=== PATIENT | female | born 1955 | race Caucasian/White ===

== ENCOUNTER 2019-07-24 13:27 | Outpatient (CLI) | payer MEDICARE, MEDICAID, SELFPAY ==
--- NOTE | 2019-07-24 13:35 | MM_ITS ---
WS: [id number] SCREENING DIGITAL MAMMOGRAM WITH CAD HISTORY: SCREENING COMPARISON: None available. Bilateral CC and MLO views submitted. Computer aided detection analyzed. Breast composition: There are scattered areas of fibroglandular density. No suspicious masses, microc alcifications or architectural distortion. Benign calcifications in each breast. No suspicious masses or distortion. MM/[place] [id number] IMPRESSION: BI-RADS: 2-Benign FOLLOW UP: 1 Year Follow-up
== END 2019-07-24 13:28 | disposition home or self-care (01) ==
PROVIDERS: Family Provider Family Medicine; PCP Family Medicine; Visit Provider Family Medicine
DX: Z12.31 Encounter for screening mammogram for malignant neoplasm of breast (principal)
CPT/HCPCS: 77067

== ENCOUNTER 2019-08-20 12:55 | Outpatient (CLI) | payer MEDICARE, MEDICAID, SELFPAY ==
--- NOTE | 2019-08-20 13:11 | XR_ITS ---
WS: [id number] HIP WITH PELVIS RIGHT TECHNIQUE: 3 views of the right hip with pelvis CLINICAL INFORMATION: PRIMARY OSTEOARTHRITIS OF RIGHT HIP COMPARISON: None. FINDINGS: Moderate degenerative arthritis right hip with joint space narrowing. Osteopenia. Surgical clips in t he right pelvis. Normal visualized right pubic rami. XR/XR hip RT 2-3V wo/w pel* [id number] IMPRESSION: Moderate degenerative arthritis right hip with joint space narrowing. No acute fractures.
== END 2019-08-20 12:56 | disposition home or self-care (01) ==
LOC: RADWPI 12:58
PROVIDERS: Family Provider Family Medicine; PCP Family Medicine; Visit Provider Family Medicine
DX: M16.11 Unilateral primary osteoarthritis, right hip (principal)
CPT/HCPCS: 73502

== ENCOUNTER → 2020-04-13 15:04 | Outpatient (BNVA) | payer MEDICARE, MEDICAID, SELFPAY | PROVIDERS: Family Provider Family Medicine; PCP Family Medicine; Visit Provider Family Medicine | DX: E13.9 Other specified diabetes mellitus without complications (principal); I50.9 Heart failure, unspecified; E03.9 Hypothyroidism, unspecified; R06.00 Dyspnea, unspecified | CPT/HCPCS: 71046; 80053; 83036; 83880; 84439; 84443; 85025 ==

== ENCOUNTER → 2020-06-04 12:48 | Outpatient (BNVA) | payer MEDICARE, MEDICAID, SELFPAY | PROVIDERS: PCP Family Medicine; Visit Provider Family Medicine | DX: Z01.812 Encounter for preprocedural laboratory examination (principal); Z20.828 Contact with and (suspected) exposure to other viral communicable diseases | CPT/HCPCS: 87635 ==

== ENCOUNTER 2020-06-09 11:40 | Outpatient (CLI) | payer MEDICARE, MEDICAID, SELFPAY ==
--- NOTE | 2020-06-09 11:50 | USCV_ITS ---
Stress Echo Cha Reynolds Age: 64 Gender: F : 1955 Exam Date: 06/09/2020 12:55 Ordering Phys: Vijay Aviles MD Technologist: Fermin Villarreal Exam Location: [facility] [place] Indication: exertional SOB Rhythm: Sinus Patient History: exertional shortness of breath, diabetic Cardiac Medications: Medications in past 24 hours: Contrast: Stress Results Protocol: Chon Total dose(mL): Exercise Duration (min:sec): 3:00 METS: 5.1 Resting HR: 101 Resting BP: 137 / 75 Peak HR: 151 Peak BP: 165 / 96 Max Predicted HR: 156 97 % Max Predicted HR Target HR: 133 Double Product: [id number] Stress Summary: The patient's target heart rate was achieved The hemodynamic response to exercise was normal Poor exercise tolerance, achieving 5.1 METS and 96.8% of max predicted heart rate. BP Response: Normal Reason for Termination: Test terminated after reaching maximum heart rate Cardiac Symptoms: Short of Breath ECG Analysis Resting ECG: Normal sinus rhythm Stress ECG: Sinus tachycardia, non specific ST-T wave changes Arrhythmia: None MEASUREMENTS (Male/Female) Normal Values FINDINGS LV systolic function is normal at baseline with EF of 55 to 60%. Regional wall motion abnormalities on baseline. Poor exercise tolerance with 5 METS achieving 96% of maximum predicted heart rate. No regional wall motion abnormalities noted at peak stress or in recovery. LV systolic function on stress is more than 70%. CONCLUSIONS 1. Poor exercise tolerance. 5.1 METS acheived. Target heart rate was achieved 2. Normal baseline LV systolic function. LV EF is 55-60% 3. Hyperdynamic LV on stress, no regional wall motion abnormalities on stress 4. Stress test negative for ischemia Sean Joseph MD (Electronically Signed) Final Date: 11 June 2020 18:01 S
[2020-06-09 11:59] VITALS: BMI 42.7
--- NOTE | 2020-06-09 12:01 | ECG_ITS ---
[facility] Test Date: 2020-06-09 Pat Name: Cha Reynolds Department: Room: Gender: Female Care Giver: : 1955 Requested By: Vijay Romeror Nader Order Number: [id number] Fran MD: Sean Joseph M.D. Interpretive Statements NAME OF STUDY: TREADMILL STRESS ECHOCARDIOGRAM INDICATION: [Shortness of Breath, ] EXERCISE DATA: The patient was exercised by Chon protocol. Baseline heart rate was 101 beats per minute. Baseline blood pressure was 137/75 millimeters of mercury. Target heart rate was 132 beats per minute. Maximum heart rate achieved was 151 bmp, which was 96% of the target heart rate. Maximum blood pressure was 165/71 millimeters of mercury. Total exercise time was 3 minutes. Maximum METs achieved was 4.6, maximum VO2 was 16.1. The reason for ending the test was target heart rate achieved. The patient had intraprocedure shortness of breath that resolved by end of test. ELECTROCARDIOGRAM: BASELINE: Showed sinus rhythm, normal axis, no significant ST-T changes at the baseline noted. EXERCISE: At the peak exercise level, No significant ST-T changes suggestive of ischemia noted. [] RECOVERY: During the recovery period, heart rate dropped appropriately. No significant ST-T changes in the recovery suggestive of ischemia noted. CONCLUSION: 1. Exercise capacity is poor 2. Heart rate response was optimal. Patient reached target heart rate 3. Blood pressure response was normal 4. Symptoms not suggestive of ischemia. 5. EKG portion of stress test is negative for ischemia. Stress echo findings reported separately Electronically Signed On 06-12-2020 13:31:53 MECHANICAL PRODUCT DESIGN ENGINEER by Sean Joseph M.D. [id number]
--- NOTE | 2020-06-09 12:30 | SUR.PREOP ---
PRE OP NOTE Checked in as Stress Echo. Patient states that she cannot walk on the treadmill. Report off to Stressing RN today Gaston. Order states exercise stress echo. Will address with ordering MD prior to stressing.
--- NOTE | 2020-06-09 12:44 | SUR.PREOP ---
STRESS NOTE Patient states she will proceed with stress ordered. Noted. Will proceed with stress. Report off to Gaston SPRING.
[2020-06-09 13:39] VITALS: BP 136/67; PULSE 102
== END 2020-06-09 11:41 | disposition home or self-care (01) ==
PROVIDERS: PCP Family Medicine; Visit Provider Internal Medicine Pulmonary Disease
DX: R06.02 Shortness of breath (principal)
CPT/HCPCS: 93017; 93350

== ENCOUNTER 2020-06-10 13:59 | Outpatient (CLI) | payer MEDICARE, MEDICAID, SELFPAY ==
--- NOTE | 2020-06-10 14:44 | PFTS_ITS ---
Date of Study:06/10/20 Date of Dictation: MECHANICS: Forced vital capacity (FVC) is reduced. Forced expiratory volume in one second (FEV1) is reduced. FEV1/FVC is normal. FLOW VOLUME LOOP: Narrowed with mild scooping. LUNG VOLUMES: Total lung capacity (TLC) is normal. Residual volume (RV) is normal. DIFFUSING CAPACITY FOR CARBON MONOXIDE: Moderately reduced. INTERPRETATION: The patient has nonspecific ventilatory limitation. The postbronchodilator spirometry is consistent with moderate restriction. However, lung volumes are normal. This could be secondary to a combined obstructive and restrictive ventilatory defect. The gas exchange is moderately reduced. MTDD
== END 2020-06-10 14:00 | disposition home or self-care (01) ==
LOC: RT 14:03
PROVIDERS: PCP Family Medicine; Visit Provider Internal Medicine Pulmonary Disease
DX: R06.02 Shortness of breath (principal)
CPT/HCPCS: 94060; 94618; 94726; 94729; J7611

== ENCOUNTER 2020-07-14 13:30 | Outpatient (CLI) | payer MEDICARE, MEDICAID, SELFPAY ==
--- NOTE | 2020-07-14 13:34 | CT_ITS ---
WS: [id number] LDCT LUNG CANCER SCREENING HISTORY: HX OF TOBACCO USE TECHNIQUE: Axial imaging performed from the apices to 1 cm below the costophrenic angles. Coronal and sagittal reformats are submitted with axial MIP series. All CT scans at [facility] use at least one of these dose optimization techniques: automated exposure control; mA and/or kV adjustment per patient size (includes targeted exams where dose is matched to clinical indication); or iterativ e reconstruction. DLP: 54.19 mGy-cm. DIvol: 1.58 COMPARISON: None available. Diagnostic quality: Limited by body habitus. Lung Nodules: None. No endobronchial lesions. Lungs: No abnormality. Heart: Normal size heart. No pericardial effusion. Other findings: Mild atherosclerotic plaque within the aorta. CT/CT lung screening [id number] IMPRESSION: LUNG-RADS: 1-Negative FOLLOW UP: 12 Month: Continue annual screening with LDCT OTHER FINDINGS (S MODIFIER): None.
== END 2020-07-14 13:31 | disposition home or self-care (01) ==
PROVIDERS: PCP Family Medicine; Visit Provider Internal Medicine Pulmonary Disease
DX: Z12.2 Encounter for screening for malignant neoplasm of respiratory organs (principal); Z87.891 Personal history of nicotine dependence
CPT/HCPCS: 71271

== ENCOUNTER 2020-11-10 12:31 | Outpatient (CLI) | payer MEDICARE, MEDICAID, SELFPAY ==
[2020-11-10 13:07] LABS: Basophils # 0.1 10^3/uL (0.0-0.1); Basophils % 0.4 %; Eosinophils # 0.3 10^3/uL (0.0-0.8); Eosinophils % 2.5 %; Hematocrit 46.5 % (37.0-47.0); Hemoglobin 15.3 g/dL (11.5-15.3); Lymphocytes # 2.8 10^3/uL (0.8-4.8); Lymphocytes % 21.7 %; Mean Corpuscular HGB Conc 32.9 g/dL (30.0-36.0); Mean Corpuscular Hemoglobin 30.9 pg (28.0-34.0); Mean Corpuscular Volume 93.9 fL (81-99); Mean Platelet Volume 10.9 fL (7.4-10.4); Monocytes # 0.6 10^3/uL (0.2-0.9); Neutrophils # 8.99 10^3/uL (1.8-7.7); Nucleated Red Blood Cells % 0 %; Platelet Count 232 10^3/cmm (130-400); Red Blood Count 4.95 10^6/uL (4.1-5.3); Red Cell Distribution Width 14.2 % (12.1-15.1); White Blood Count 12.8 10^3/uL (4.0-10.0)
[2020-11-11 15:28] LABS: Alternaria Alternata (M6) Ige <0.10 kU/L; Alternaria Class 0; Bermuda Class 1; Bermuda Grass (G2) Ige 0.45 kU/L; Cat Dander (E1) Ige <0.10 kU/L; Cat Dander Class 0; Common Ragweed (Short) (W1) Ig 0.33 kU/L; D. Farinae Class 2; Dermatophagoides Class 2; Dermatophagoides Farinae (D2) 2.07 kU/L; Dog Dander (E5) Ige <0.10 kU/L; Dog Dander Class 0; Elm (T8) Ige 0.18 kU/L; Elm Class 0/1; English Plantain (W9) Ige 0.33 kU/L; English Plantain Class 0/1; House Dust (Greer) (H1) Ige <0.10 kU/L; House Dust (Hollister- Stier) 0.72 kU/L; House Dust Class 0; House Dust Class 2; Immunoglobulin E 196 kU/L (<OR=114); Johnson Grass (G10) Ige 0.18 kU/L; Johnson Grass Cl 0/1; June Grass Class 0/1; Lamb'S Quarters (Goose Foot) 0.43 kU/L; Lamb'S Quarters Class 1; Maple (Box Elder) (T1) Ige 0.17 kU/L; Maple Class 0/1; Meadow Fescue (G4) Ige 0.21 kU/L; Meadow Fescue Class 0/1; Mucor Racemosus Class 0; Oak (T7) Ige 0.21 kU/L; Oak Class 0/1; Orchard Grass (Cocksfoot) (G3) 0.21 kU/L; Penicillium Class 0; Penicillium Notatum (M1) Ige <0.10 kU/L; Perennial Rye Grass Class 0/1; Ragweeed Class 0/1; Rough Marsh Elder (W16) Ige 0.37 kU/L; Rough Marsh Elder Class 1; Sweet Vernal Class 0/1; Sweet Vernal Grass (G1) Ige 0.21 kU/L; Timothy Grass (G6) Ige 0.23 kU/L; Timothy Grass Class 0/1
[2020-11-11 16:03] LABS: Immunoglobulin E 193 kU/L (<OR=114)
[2020-11-15 17:02] LABS: Aspergillus Fumigatus, Igg Ab, 6.5 mg/L (<=102)
== END 2020-11-10 12:32 | disposition home or self-care (01) ==
LOC: LAB 12:38
PROVIDERS: PCP Family Medicine; Visit Provider Internal Medicine Pulmonary Disease
DX: R06.02 Shortness of breath (principal); J84.9 Interstitial pulmonary disease, unspecified
CPT/HCPCS: 36415; 82785; 85025; 86003; 86331; 86606; 86609

== ENCOUNTER 2020-12-24 09:02 | Outpatient (CLI) | payer MEDICARE, MEDICAID, SELFPAY ==
--- NOTE | 2020-12-24 09:30 | USCV_ITS ---
Cha Reynolds Age: 65 Gender: F : 1955 Exam Date: 12/24/2020 09:48 Ordering Phys: Vijay Aviles MD Technologist: Sumaya Tavarez Exam Location: [facility] [place] Indication: SOB BP: / HR: 86 Rhythm: Sinus Technical Quality: TDS MEASUREMENTS (Male / Female) Normal Values 2D ECHO LV Diastolic Diameter PLAX 4.1 cm 4.2 - 5.9 / 3.9 - 5.3 cm LV Systolic Diameter PLAX 2.8 cm LV Chamber Size 3.1 cm IVS Diastolic Thickness 1.4 cm 0.6 - 1.0 / 0.6 - 0.9 cm IVS Systolic Thickness 1.5 cm LVPW Diastolic Thickness 1.4 cm 0.6 - 1.0 / 0.6 - 0.9 cm LVPW Systolic Thickness 1.2 cm RV Chamber Size 2.9 cm LVOT Diameter 2.1 cm LV Ejection Fraction 2D Teich 59.3 % LV Ejection Fraction MOD 2C 40.6 % LV Ejection Fraction 2C AL 43.9 % LA Diameter 1.6 cm LA Width 3.4 cm LA Height 4.8 cm RA Width 3.8 cm RA Height 4.9 cm Aorta at Sinotubular Diameter 3.5 cm M-MODE LV Diastolic Diameter MM 5.4 cm 4.2 - 5.9 / 3.9 - 5.3 cm LV Systolic Diameter MM 3.2 cm LV Ejection Fraction MM Teich 69.9 % IVS Diastolic Thickness MM 1.0 cm 0.6 - 1.0 / 0.6 - 0.9 cm IVS Systolic Thickness MM 1.8 cm LVPW Diastolic Thickness MM 1.6 cm 0.6 - 1.0 / 0.6 - 0.9 cm LVPW Systolic Thickness MM 1.9 cm Aortic Annulus Diameter 4.9 cm LA Ao Ratio MM 0.0 MV E Point Septal Separation 0.5 cm DOPPLER AV Peak Velocity 161.0 cm/s LVOT Peak Velocity 97.0 cm/s AV Area Cont Eq vti 2.7 cm squared AV Area Cont Eq pk 2.2 cm squared MV Area PHT 5.0 cm squared Mitral E to A Ratio 0.9 MV E' Velocity 50.5 cm/s Mitral E to MV E' Ratio 10.2 Mitral E to LV E' Lateral Ratio 11.9 Mitral E to LV E' Septal Ratio 8.9 TR Peak Velocity 175.3 cm/s TR Peak Gradient 12.3 mmHg TR Mean Velocity 130.0 cm/s TR Mean Gradient 7.5 mmHg TR Velocity Time Integral 41.3 cm TV Peak E Velocity 80.0 cm/s Right Atrial Pressure 8.0 mmHg Pulmonary Artery Systolic Pressu 20.3 mmHg PV Peak Velocity 81.0 cm/s RV Acceleration Time 0.1 s RV Ejection Time 0.4 s RV AcT/ET 0.4 FINDINGS Left Ventricle Normal left ventricular size and systolic function, EF 60 %. No regional wall motion abnormalities. Technically difficult study because of the poor ultrasonic window Right Ventricle The right ventricle is normal in size and function. Right Atrium The right atrium is normal in size. Left Atrium The left atrium is normal in size. Mitral Valve No gross abnormalities noted Aortic Valve The aortic leaflets could not visualize well. No gross abnormalities noted. Tricuspid Valve Trace tricuspid valve regurgitation. Estimated pulmonary artery peak systolic pressure of 20 mmHg Pulmonic Valve Pulmonic valve not well visualized. Pericardium Normal pericardium without effusion. Aorta Normal ascending aorta dimension. CONCLUSIONS Normal left ventricular size and systolic function, EF 60 %. No regional wall motion abnormalities. Trace tricuspid valve regurgitation. Estimated pulmonary artery peak systolic pressure of 20 mmHg. There is no pericardial effusion. Technically difficult study because of the poor ultrasonic window. Dr Shannon Connelly MD FACC (Electronically Signed) Final Date: 24 December 2020 17:13 S
--- NOTE | 2020-12-24 10:30 | CT_ITS ---
WS: [id number] HIGH-RESOLUTION CT CHEST TECHNIQUE: High-resolution Noncontrast CT of the chest with coronal and sagittal reformatted images. Inspiratory, expiratory, prone imaging. CLINICAL INFORMATION: hyperesensitivity pneumonia COMPARISON: July 14, 2020 DLP: 1233.[address] scans at [facility] use at least one of these dose optimization techniques: automat ed exposure control; mA and/or kV adjustment per patient size (includes targeted exams where dose is matched to clinical indication); or iterative reconstruction. FINDINGS: Lungs well aerated. No acute pulmonary infiltrates. No focal consolidation or pleural fluid. No focal pneumonia. No significant air trapping on expiratory imaging. No evidence of interstitial lung disea se or interstitial fibrosis.. No bronchiectasis or honeycombing. No mediastinal or hilar lymphadenopathy. Aortic calcification. No axillary lymphadenopathy. Right adrenal gland is normal. Small left adrenal adenoma measuring [address]/CT chest wo con [id number] IMPRESSION: 1. No evidence of interstitial lung disease. 2. No interstitial fibrosis or subpleural honeycombing. No bronchiectasis. 3. Mild chronic emphysematous changes. 4. No focal pneumonia or pleural fluid. 5. No mediastinal or hilar lymphadenopathy.
== END 2020-12-24 09:03 | disposition home or self-care (01) ==
LOC: RAD 09:04
PROVIDERS: PCP Family Medicine; Visit Provider Internal Medicine Pulmonary Disease
DX: J67.9 Hypersensitivity pneumonitis due to unspecified organic dust (principal); R06.00 Dyspnea, unspecified
CPT/HCPCS: 71250; 93306